=== PATIENT | female | born 1995 | race Caucasian/White ===

== ENCOUNTER 2017-11-12 16:51 | Emergency (ER) | payer SELFPAY ==
[~2017-11-12] VITALS: Ht 170.2 cm; Wt 75.0 kg
[2017-11-12 17:00] VITALS: BP 124/72; PULSE 95; RESP 16; TEMP 99.8; O2SAT 99
[2017-11-12] MEDS ORDERED: LEVA500T33 PO (17:23)
--- NOTE | 2017-11-12 17:29 | PD ---
HPI Chief Complaint: ENT Complaint Time Seen by Provider: 17:14 Travel History International Travel<30 days: No Contact w/Intl Traveler<30days: No Traveled to known affect area: No History of Present Illness HPI 22-year-old female presents emergency department with ongoing tonsillitis pain and swelling. Patient states she was seen by her primary care physician 5 days ago and started on amoxicillin 500 mg 3 times daily. She states her sore throat pain has somewhat worsened, and the swelling is a little bit worse than the left compared to the right. She has low-grade fevers and chills. She denies difficulty breathing or swallowing. She has no ear pain or headache. No cough. No nausea or vomiting. Pain is currently 8 out of 10. She is concerned about possible tonsillar abscess. She has no known drug allergies PFSH Past Medical History ?: Not Social History Alcohol Use: No Tobacco Use: No Substance Use: No Allergies-Medications Reported Meds & Prescriptions Reported Meds & Active Scripts Active Levaquin (Levofloxacin) 500 Mg Tablet 500 Mg PO DAILY 7 Days Review of Systems Except as stated in HPI: all other systems reviewed are Neg General / Constitutional: Positive: Fever (Low-grade) Eyes: No: Visual changes HENT: Positive: Sore Throat, No: Headaches, Vertigo, Lightheadedness, Rhinitis , Rhinorrhea, Congestion, Nosebleed, Neck Stiffness, Neck Pain, Dental Difficulties, Earache Cardiovascular: No: Chest Pain or Discomfort Respiratory: No: Shortness of Breath Gastrointestinal: No: Nausea, Vomiting, Diarrhea, Abdominal Pain Genitourinary: No: Dysuria Musculoskeletal: No: Pain Skin: No Rash Neurologic: No: Weakness Psychiatric: No: Depression Endocrine: No: Polydipsia Hematologic/Lymphatic: No: Easy Bruising Physical Exam Narrative GENERAL: Patient appears in mild distress. SKIN: Warm and dry. Normal color. Normal turgor HEAD: Atraumatic. Normocephalic. EYES: Pupils equal and round. No scleral icterus. No injection or drainage. ENT: No nasal bleeding or discharge. Mucous membranes pink and moist. TMs clear bilaterally. Patient has moderate tonsillitis bilaterally with mild injection, and the left tonsil appears somewhat more swollen than the right. There is white exudate present. Uvula is midline. Airway is patent. There is no sinus tenderness. NECK: Trachea midline. Supple with mild to moderate anterior cervical lymphadenopathy CARDIOVASCULAR: Regular rate and rhythm. RESPIRATORY: No accessory muscle use. Clear to auscultation. Breath sounds equal bilaterally. GASTROINTESTINAL: Abdomen soft, non-tender, nondistended. Hepatic and splenic margins not palpable. MUSCULOSKELETAL: Extremities without clubbing, cyanosis, or edema. No obvious deformities. NEUROLOGICAL: Awake and alert. No obvious cranial nerve deficits. Motor grossly within normal limits. Five out of 5 muscle strength in the arms and legs. Normal speech. PSYCHIATRIC: Appropriate mood and affect; insight and judgment normal. Data Data Last Documented VS Vital Signs Date Time Temp Pulse Resp B/P (MAP) Pulse Ox O2 Delivery O2 Flow Rate FiO2 11/12/17 17:00 99.8 95 16 124/72 (89) 99 MDM Medical Decision Making Medical Screen Exam Complete: Yes Emergency Medical Condition: Yes Differential Diagnosis Pharyngitis. Tonsillitis. Early tonsillar abscess. Mononucleosis. Narrative Course Patient is medically stable at time of exam. Patient will be switched to Levaquin 500 mg daily for the next 7 days. Patient should continue ibuprofen and Tylenol as discussed Recommend salt water gargles and ice chips as needed. Patient to follow-up if symptoms do not improve. Work note is given. Diagnosis Primary Impression: Tonsillitis Patient Instructions: General Instructions, Mononucleosis (ED), Pharyngitis (DC ), Tonsillitis (DC) Departure Forms: Work Release Enter return to work date: November 13, 2017 Additional Instructions: Patient will be switched to Levaquin 500 mg daily for the next 7 days. Patient should continue ibuprofen and Tylenol as discussed Recommend salt water gargles and ice chips as needed. Patient to follow-up if symptoms do not improve. Work note is given. Med/Other Pt SpecificInfo: Prescription(s) given Scripts Levofloxacin (Levaquin) 500 Mg Tablet 500 MG PO DAILY for Infection for 7 Days, #7 TAB 0 Refills Prov: Tylor Ruiz MD 11/12/17 Disposition: 01 DISCHARGE HOME Condition: Stable Carter Bermudez November 12, 2017 17:29
== END 2017-11-12 17:51 | disposition home or self-care (01) ==
LOC: NEPK 16:51
DX: J03.90 Acute tonsillitis, unspecified (principal)
CPT/HCPCS: 99283